=== PATIENT | female | born 1975 | race Two or more races ===

== ENCOUNTER 2022-11-11 21:30 | Inpatient (IN) | payer MEDICAID, OTHER ==
[~2022-11-11] VITALS: Ht 160 cm; Wt 72.0 kg
[2022-11-11 22:36] LABS: White Blood Cell 6.1 10^3/uL (4.4-10.8)
[2022-11-11 22:40] LABS: Basophils # (auto) 0.1 10 ^3/uL (0-0.2); Basophils % (auto) 0.9 % (0.0-2.0); Eosinophils # (auto) 0.1 10 ^3/uL (0-0.8); Eosinophils % (auto) 2.1 % (0.0-7.0); Hematocrit 30.8 % (36.0-46.0); Lymphocytes # (auto) 1.1 10 ^3/uL (0.4-5.4); Lymphocytes % (auto) 17.8 % (10.0-50.0); Mean Corpuscular Hemoglobin 24.1 pg (28.0-32.0); Mean Corpuscular Hgb Conc. 32.6 g/dL (32.0-36.0); Monocytes # (auto) 0.6 10 ^3/uL (0-1.3); Monocytes % (auto) 9.3 % (0.0-12.0); Neutrophils # (auto) 4.2 10 ^3/uL (1.6-8.6); Neutrophils % (auto) 69.9 % (37.0-80.0); Nucleated Red Blood Cells % 0.4 %; Red Blood Cells 4.16 10^6/uL (4.0-5.20); Red Cell Distribution Width 16.8 % (11.8-14.3)
[2022-11-11 22:46] LABS: Albumin 2.5 g/dL (3.4-5.0); Calcium 7.6 mg/dL (8.5-10.1); Potassium 3.5 mmol/L (3.5-5.1)
[2022-11-11 22:50] LABS: BUN/Creatinine Ratio 26.2 (10.0-20.0); Bilirubin, Total 0.4 mg/dL (0.2-1.0); Total Protein 7.9 g/dL (6.4-8.2)
[2022-11-12] MEDS ORDERED: IOHEXOL 350 MG/ML 100ML IJ ONE (00:11)
[2022-11-12] MEDS ORDERED: AZITHROMYCIN 500MG/ 250ML 250 ML IV ONE (00:30)
[2022-11-12] MEDS ORDERED: DexAMETHasone SOD PHOS 10MG/1ML VIAL INJ IV ONE (00:30)
[2022-11-12] MEDS ORDERED: cefTRIAXone 1GM/50ML D5W 50 ML IV ONE (00:30)
[2022-11-12] MEDS ORDERED: FAMOTIDINE (10MG/ML) 2ML VL IV ONE (03:15)
[2022-11-12] MEDS ORDERED: ONDANSETRON HCL 4 MG/2 ML VIAL IV PRN (05:45)
[2022-11-12] MEDS ORDERED: ACETAMINOPHEN 325 MG TAB PO PRN (05:45)
[2022-11-12 08:55] LABS: Urine Bacteria NONE SEEN /hpf (None Seen); Urine Blood 2+ /uL (Negative); Urine Specific Gravity 1.025 (1.001-1.035); Urine WBC 14 /hpf (0 - 5)
[2022-11-12] MEDS ORDERED: FUROSEMIDE 20 MG TAB PO SCH (10:00)
[2022-11-12 10:14] VITALS: BP 116/80
[2022-11-12] MEDS ORDERED: FUROSEMIDE 20 MG/2 ML VIAL IV ONE (10:15)
[2022-11-12] MEDS: ALBUTEROL SULF 2.5 MG/0.5ML(0.5%) NEB SOLN NEB PRN (10:48)
[2022-11-12] MEDS ORDERED: FLUCONAZOLE 100 MG TAB PO ONE (11:15)
[2022-11-12] MEDS ORDERED: BACTRIM 5MG/KG Q8HR PER RX 0 ML IV SCH (11:15)
[2022-11-12] MEDS: ENOXAPARIN SOD 40 MG/0.4 ML SYRINGE SC SCH (11:47)
[2022-11-12] MEDS: PANTOPRAZOLE 40 MG TAB PO SCH (11:47)
[2022-11-12 13:51] VITALS: BP 112/75
[2022-11-12 14:02] LABS: Ferritin 8.3 ng/mL (10-322)
[2022-11-12 14:20] LABS: % Iron Saturation 4.7 % (15-50)
[2022-11-12] MEDS: SULFAMETH-TRIMETH 80/16MG-ML 15 ML in D5W 5% 250 ML IV SCH (15:00)
[2022-11-12 16:47] VITALS: BP 105/64
[2022-11-12 20:00] VITALS: BP 116/80
[2022-11-12 22:00] VITALS: BP 108/69
[2022-11-13] VITALS (7 sets, daily range): BP systolic 65–115; BP diastolic 59–76
[2022-11-13] MEDS: SULFAMETH-TRIMETH 80/16MG-ML 15 ML in D5W 5% 250 ML IV SCH ×4 (04:20→22:02)
[2022-11-13 05:49] LABS: Basophils # (auto) 0 10 ^3/uL (0-0.2); Basophils % (auto) 0.1 % (0.0-2.0); Eosinophils # (auto) 0 10 ^3/uL (0-0.8); Hemoglobin 9.1 g/dL (12.2-16.2); Lymphocytes # (auto) 0.6 10 ^3/uL (0.4-5.4); Neutrophils # (auto) 7.2 10 ^3/uL (1.6-8.6); White Blood Cell 8.3 10^3/uL (4.4-10.8)
[2022-11-13 05:51] LABS: Hematocrit 28.1 % (36.0-46.0); Lymphocytes % (auto) 7.8 % (10.0-50.0); Mean Corpuscular Hemoglobin 24.4 pg (28.0-32.0); Mean Corpuscular Hgb Conc. 32.4 g/dL (32.0-36.0); Mean Corpuscular Volume 75.5 fL (80.0-100.0); Monocytes # (auto) 0.4 10 ^3/uL (0-1.3); Monocytes % (auto) 5.1 % (0.0-12.0); Nucleated Red Blood Cells % 0.2 %; Red Blood Cells 3.72 10^6/uL (4.0-5.20); Red Cell Distribution Width 16.8 % (11.8-14.3)
[2022-11-13 06:02] LABS: Albumin 2.8 g/dL (3.4-5.0); Calcium 8.1 mg/dL (8.5-10.1); Potassium 3.8 mmol/L (3.5-5.1)
[2022-11-13 06:07] LABS: BUN/Creatinine Ratio 24.2 (10.0-20.0); Bilirubin, Total 0.3 mg/dL (0.2-1.0); Total Protein 8.5 g/dL (6.4-8.2)
[2022-11-13 07:06] LABS: Immunoglobulin G, Serum 3928 mg/dL (586-1602)
[2022-11-13] MEDS: ENOXAPARIN SOD 40 MG/0.4 ML SYRINGE SC SCH (11:25)
[2022-11-13] MEDS: PANTOPRAZOLE 40 MG TAB PO SCH (11:25)
[2022-11-13] MEDS: AZITHROMYCIN 500MG/ 250ML 250 ML IV SCH (11:29)
[2022-11-13] MEDS: FUROSEMIDE 20 MG/2 ML VIAL IV SCH (11:29)
[2022-11-13] MEDS ORDERED: AMINO ACID INFUSION IN D10W 1,000 ML IV NR (20:00)
[2022-11-13] MEDS: TEMAZEPAM 15 MG CAP PO PRN (22:06)
[2022-11-14 05:00] VITALS: BP 114/73
[2022-11-14] MEDS: SULFAMETH-TRIMETH 80/16MG-ML 15 ML in D5W 5% 250 ML IV SCH ×3 (05:42→21:55)
[2022-11-14 06:38] LABS: Basophils # (auto) 0 10 ^3/uL (0-0.2); Eosinophils # (auto) 0 10 ^3/uL (0-0.8); Eosinophils % (auto) 0.7 % (0.0-7.0); Lymphocytes % (auto) 15.4 % (10.0-50.0); Mean Corpuscular Hemoglobin 23.4 pg (28.0-32.0); Monocytes # (auto) 0.5 10 ^3/uL (0-1.3)
[2022-11-14 06:43] LABS: Basophils % (auto) 0.7 % (0.0-2.0); Hematocrit 31.5 % (36.0-46.0); Lymphocytes # (auto) 0.9 10 ^3/uL (0.4-5.4); Mean Corpuscular Hgb Conc. 31.8 g/dL (32.0-36.0); Mean Corpuscular Volume 73.6 fL (80.0-100.0); Monocytes % (auto) 8.6 % (0.0-12.0); Neutrophils # (auto) 4.5 10 ^3/uL (1.6-8.6); Neutrophils % (auto) 74.6 % (37.0-80.0); Nucleated Red Blood Cells % 0.3 %; Red Blood Cells 4.28 10^6/uL (4.0-5.20); Red Cell Distribution Width 16.9 % (11.8-14.3); White Blood Cell 6.1 10^3/uL (4.4-10.8)
[2022-11-14 07:01] LABS: Calcium 7.9 mg/dL (8.5-10.1); Potassium 3.3 mmol/L (3.5-5.1)
[2022-11-14 07:05] LABS: BUN/Creatinine Ratio 23.3 (10.0-20.0)
[2022-11-14 08:00] VITALS: BP 107/70
[2022-11-14] MEDS ORDERED: IOHEXOL 300 MG/ML 100ML BOTTLE IJ ONE (08:17)
[2022-11-14] MEDS: ALBUTEROL SULF 2.5 MG/0.5ML(0.5%) NEB SOLN NEB PRN (09:35)
[2022-11-14] MEDS: ENOXAPARIN SOD 40 MG/0.4 ML SYRINGE SC SCH (10:56)
[2022-11-14] MEDS: PANTOPRAZOLE 40 MG TAB PO SCH (10:56)
[2022-11-14] MEDS: FUROSEMIDE 20 MG/2 ML VIAL IV SCH (10:56)
[2022-11-14] MEDS: AZITHROMYCIN 500MG/ 250ML 250 ML IV SCH (10:57)
[2022-11-14] MEDS ORDERED: POTASSIUM CHL 20 Meq TABLET PO ONE (11:15)
[2022-11-14 12:00] VITALS: BP 107/63
[2022-11-14 16:00] VITALS: BP 94/63
[2022-11-14 20:00] VITALS: BP 107/73
[2022-11-14] MEDS: TEMAZEPAM 15 MG CAP PO PRN (22:25)
[2022-11-14 22:34] VITALS: BP 107/73
[2022-11-15] VITALS (7 sets, daily range): BP systolic 101–117; BP diastolic 60–67
[2022-11-15] MEDS: SULFAMETH-TRIMETH 80/16MG-ML 15 ML in D5W 5% 250 ML IV SCH ×3 (05:52→21:37)
[2022-11-15] MEDS: AZITHROMYCIN 500MG/ 250ML 250 ML IV SCH (09:42)
[2022-11-15] MEDS: ENOXAPARIN SOD 40 MG/0.4 ML SYRINGE SC SCH (09:42)
[2022-11-15] MEDS: PANTOPRAZOLE 40 MG TAB PO SCH (09:42)
[2022-11-15] MEDS: FUROSEMIDE 20 MG/2 ML VIAL IV SCH (09:43)
[2022-11-15] MEDS: TEMAZEPAM 15 MG CAP PO PRN (21:37)
[2022-11-16 05:00] VITALS: BP 121/79
[2022-11-16] MEDS: SULFAMETH-TRIMETH 80/16MG-ML 15 ML in D5W 5% 250 ML IV SCH (05:56)
[2022-11-16 08:32] VITALS: BP 116/70
[2022-11-16] MEDS: PANTOPRAZOLE 40 MG TAB PO SCH (09:49)
[2022-11-16] MEDS: FUROSEMIDE 20 MG/2 ML VIAL IV SCH (09:49)
[2022-11-16] MEDS: AZITHROMYCIN 500MG/ 250ML 250 ML IV SCH (09:49)
[2022-11-16] MEDS: ENOXAPARIN SOD 40 MG/0.4 ML SYRINGE SC SCH (09:49)
[2022-11-16] MEDS ORDERED: BACDST PO (10:47)
[2022-11-16 12:49] VITALS: BP 118/77
[2022-11-16 12:57] VITALS: BP 116/70
== END 2022-11-16 14:35 | disposition home or self-care (01) | DRG 890 ==
LOC: ER 21:30 → OVERFLOW 11-12 05:48 → EAST 11-12 09:47
PROVIDERS: ADMIT Nurse Practitioner; ATTEND Internal Medicine Geriatric Medicine
DX: J18.9 Pneumonia, unspecified organism (principal); B20 Human immunodeficiency virus [HIV] disease; J96.01 Acute respiratory failure with hypoxia; B59 Pneumocystosis; E44.0 Moderate protein-calorie malnutrition; D69.6 Thrombocytopenia, unspecified; E88.09 Other disorders of plasma-protein metabolism, not elsewhere classified; I11.0 Hypertensive heart disease with heart failure; I50.9 Heart failure, unspecified; E87.6 Hypokalemia; R59.0 Localized enlarged lymph nodes; D64.9 Anemia, unspecified; Z79.899 Other long term (current) drug therapy; Z68.28 Body mass index [BMI] 28.0-28.9, adult; Z80.8 Family history of malignant neoplasm of other organs or systems; Z63.4 Disappearance and death of family member
CPT/HCPCS: 36415; 70491; 71045; 71275; 74177; 80048; 80053; 81001; 82607; 82728; 82784; 83540; 83550; 83615; 83880; 84484; 85025; 85045; 86038; 86334; 86360; 86703; 87040; 93005; 93306; 94640; 96365; 96368; 96375; G0378; J0696; J1100; J2405; J3490; J7060

== ENCOUNTER 2024-03-26 22:40 | Inpatient (IN) | payer MEDICAID ==
[~2024-03-26] VITALS: Ht 157.5 cm; Wt 70.4 kg
[~2024-03-26 22:40] MED LIST: BACDST PO
[2024-03-27 00:15] VITALS: PULSE 85; RESP 14; O2SAT 98
[2024-03-27] MEDS: ALBUTEROL SULF 2.5 MG/0.5ML(0.5%) NEB SOLN ONE (01:54)
[2024-03-27] MEDS: ALBUTEROL SULF 2.5 MG/0.5ML(0.5%) NEB SOLN NEB ONE (02:00)
[2024-03-27 02:01] LABS: Basophils # (auto) 0 10 ^3/uL (0-0.2); Basophils % (auto) 1.2 % (0.0-2.0); Eosinophils # (auto) 0.1 10 ^3/uL (0-0.8); Eosinophils % (auto) 1.4 % (0.0-7.0); Hematocrit 31.2 % (36.0-46.0); Hemoglobin 10.5 g/dL (12.2-16.2); Lymphocytes # (auto) 0.9 10 ^3/uL (0.4-5.4); Lymphocytes % (auto) 22.2 % (10.0-50.0); Mean Corpuscular Hemoglobin 24.7 pg (28.0-32.0); Mean Corpuscular Hgb Conc. 33.7 g/dL (32.0-36.0); Mean Corpuscular Volume 73.3 fL (80.0-100.0); Monocytes # (auto) 0.3 10 ^3/uL (0-1.3); Monocytes % (auto) 8.1 % (0.0-12.0); Neutrophils # (auto) 2.8 10 ^3/uL (1.6-8.6); Neutrophils % (auto) 67.1 % (37.0-80.0); Nucleated Red Blood Cells % 0.2 %; Platelet Count (auto) 151 10^3/uL (140-450); Red Blood Cells 4.25 10^6/uL (4.0-5.20); Red Cell Distribution Width 17.7 % (11.8-14.3); White Blood Cell 4.1 10^3/uL (4.4-10.8)
[2024-03-27 02:08] LABS: Chloride 107 mmol/L (98-107); Sodium 132 mmol/L (136-145)
[2024-03-27 02:09] LABS: Anion Gap 5 (5-15); Calcium 8.7 mg/dL (8.7-10.4); Carbon Dioxide 20 mmol/L (20-30)
[2024-03-27 02:14] LABS: BUN/Creatinine Ratio 17.5 (10.0-20.0); Blood Urea Nitrogen 17 mg/dL (9-23); Glucose 93 mg/dL (74-106)
[2024-03-27 05:40] VITALS: PULSE 85; RESP 16; O2SAT 95
[2024-03-27] MEDS: methylPREDNISolone SOD SUCC 125 MG/2 ML VL IV ONE (06:20)
[2024-03-27] MEDS: ASPirin 81 mg TAB PO ONE (06:21)
[2024-03-27] MEDS ORDERED: MORPHINE SULFATE INJ 2 MG/ml SYRG IV PRN (07:00)
[2024-03-27] MEDS ORDERED: NITROGLYCERIN 0.4 MG SL TAB SL PRN (07:00)
[2024-03-27] MEDS ORDERED: ONDANSETRON HCL 4 MG/2 ML VIAL IV PRN (07:00)
[2024-03-27] MEDS ORDERED: ACETAMINOPHEN 325 MG TAB PO PRN (07:00)
[2024-03-27 07:20] VITALS: PULSE 87; RESP 16; O2SAT 95
[2024-03-27 07:25] VITALS: BP 121/65; PULSE 85; RESP 16; TEMP 98.5; O2SAT 95
[2024-03-27] MEDS: ASPirin 81 mg TAB PO SCH (09:52)
[2024-03-27] MEDS: diphenhdrAMINE HCL 25 MG CAP PO PRN (12:29)
[2024-03-27] MEDS: TRIAMCINOLONE ACET0.5% TOPICAL CRE 15GM TOP SCH (14:00)
[2024-03-27] MEDS: ALBUTEROL SULF 2.5 MG/0.5ML(0.5%) NEB SOLN NEB PRN (16:44)
[2024-03-27] MEDS: IPRATROPIUM BROM 0.5 MG/2.5ML INH SOL NEB PRN (16:44)
[2024-03-27 18:30] VITALS: O2SAT 96
[2024-03-27 19:30] VITALS: PULSE 74; RESP 17; O2SAT 95
[2024-03-27] MEDS: TEMAZEPAM 15 MG CAP PO PRN (23:09)
[2024-03-28] VITALS (7 sets, daily range): BP systolic 99–125; BP diastolic 61–83; PULSE 50–88; RESP 15–19; TEMP 96.9–98.2; O2SAT 92–100
[2024-03-28 06:33] LABS: Anion Gap 8 (5-15); Carbon Dioxide 18 mmol/L (20-30); Chloride 108 mmol/L (98-107); Potassium 3.7 mmol/L (3.5-5.1); Sodium 134 mmol/L (136-145)
[2024-03-28 06:34] LABS: Calcium 8.6 mg/dL (8.7-10.4)
[2024-03-28 06:39] LABS: Glucose 118 mg/dL (74-106)
[2024-03-28 06:40] LABS: BUN/Creatinine Ratio 27.2 (10.0-20.0); Blood Urea Nitrogen 22 mg/dL (9-23)
[2024-03-28] MEDS ORDERED: ALBU0.084 IN (09:42)
[2024-03-28] MEDS: cefTRIAXone 1GM/50ML D5W 50 ML IV SCH (12:25)
[2024-03-28] MEDS: methylPREDNISolone SOD SUCC 125 MG/2 ML VL IV SCH (12:25)
[2024-03-29 01:00] VITALS: BP 132/86; PULSE 71; RESP 18; TEMP 97.5; O2SAT 92
[2024-03-29 05:00] VITALS: BP 124/91; PULSE 74; RESP 15; TEMP 96.4; O2SAT 93
[2024-03-29 08:00] VITALS: PULSE 73
[2024-03-29 08:36] LABS: Anion Gap 10 (5-15); Carbon Dioxide 15 mmol/L (20-30); Chloride 108 mmol/L (98-107); Potassium 4.4 mmol/L (3.5-5.1); Sodium 133 mmol/L (136-145)
[2024-03-29 08:42] LABS: Glucose 117 mg/dL (74-106)
[2024-03-29 09:00] VITALS: BP 126/83; PULSE 71; RESP 18; TEMP 97.7; O2SAT 94
[2024-03-29] MEDS: AZITHROMYCIN 250 MG TAB PO SCH (09:05)
[2024-03-29 09:20] LABS: BUN/Creatinine Ratio 21.7 (10.0-20.0); Blood Urea Nitrogen 18 mg/dL (9-23)
[2024-03-29 10:46] LABS: Basophils # (auto) 0 10 ^3/uL (0-0.2); Eosinophils # (auto) 0 10 ^3/uL (0-0.8); Hemoglobin 9.5 g/dL (12.2-16.2); Lymphocytes # (auto) 0.5 10 ^3/uL (0.4-5.4); Mean Corpuscular Hemoglobin 24.4 pg (28.0-32.0); Monocytes # (auto) 0.1 10 ^3/uL (0-1.3)
[2024-03-29 10:50] LABS: Hematocrit 29.8 % (36.0-46.0); Lymphocytes % (auto) 9.5 % (10.0-50.0); Mean Corpuscular Volume 76.4 fL (80.0-100.0); Monocytes % (auto) 1.5 % (0.0-12.0); Neutrophils # (auto) 4.4 10 ^3/uL (1.6-8.6); Nucleated Red Blood Cells % 0.9 %; Platelet Count (auto) 167 10^3/uL (140-450); Red Cell Distribution Width 18.3 % (11.8-14.3)
[2024-03-29] MEDS ORDERED: ALBU0.084 NEB (12:21)
[2024-03-29] MEDS ORDERED: AZIT-185 PO (12:21)
[2024-03-29] MEDS ORDERED: ALBUAER3 IN (12:21)
[2024-03-29] MEDS ORDERED: METH4PAK PO (12:21)
[2024-03-29 13:00] VITALS: BP 130/93; PULSE 84; RESP 21; TEMP 98.3; O2SAT 96
[2024-03-29 17:06] VITALS: BP 133/95; PULSE 67; RESP 17; TEMP 97.3; O2SAT 95
== END 2024-03-29 17:17 | disposition home or self-care (01) | DRG 133 ==
LOC: ER 22:40 → EDBD 22:40 → TELE 03-27 06:53 → TELE-WESTW 03-28 09:00
PROVIDERS: ADMIT Nurse Practitioner; ATTEND Internal Medicine
DX: J96.20 Acute and chronic respiratory failure, unspecified whether with hypoxia or hypercapnia (principal); J45.901 Unspecified asthma with (acute) exacerbation; I50.9 Heart failure, unspecified; Z87.59 Personal history of other complications of pregnancy, childbirth and the puerperium; Z79.899 Other long term (current) drug therapy
CPT/HCPCS: 36415; 71046; 80048; 83880; 84484; 85025; 93005; 93306; 94640; G0378